=== PATIENT | female | born 1995 | race Hispanic/Latino ===

== ENCOUNTER 2024-05-03 08:37 | Emergency (ER) | payer BC, MEDICAID ==
[~2024-05-03] VITALS: Ht 147.3 cm; Wt 84.4 kg
[~2024-05-03 08:37] MED LIST: PREN-196 PO
[2024-05-03] MEDS ORDERED: ACET-2743 PO (09:00)
[2024-05-03] MEDS ORDERED: IBUP-2077 PO (09:00)
[2024-05-03] MEDS ORDERED: AMOX1TAB16 PO (09:00)
--- NOTE | 2024-05-03 09:02 | ERN ---
General Chief Complaint: Tooth Ache/Pain Stated Complaint: TOOTHACHE Time Seen by MD: 08:53 History of Present Illness Initial Comments 29-year-old female presents for dental infection to the left upper molars. Has been present for about three days. Tenderness. No abscess. No fevers or systemic illness. She took a few amoxicillin from [place]. She was planning on going to a dentist. Allergies: Coded Allergies: No Known Allergies (Unverified Allergy, Unknown, 03/19/14) Home Meds Reported Medications Vit No.124/Iron/FA ( Vitamin Tablet) 1 Each Tablet, 1 EACH PO DAILY, TAB 12/28/15 Past Medical History Past Medical History: No Pertinent History Past Surgical History: None Female( History) LMP: Apr 28, 2024 ROS Dictation CONSTITUTIONAL: No chills, no fever, no weakness, no diaphoresis, no malaise. HEAD/FACE: No signs of trauma. EENT: Dental pain RESPIRATORY: No cough, no orthopnea, no SOB, no stridor, no wheezing. CARDIOVASCULAR: No chest pain, no edema, no palpitations, no syncope. GASTROINTESTINAL/ABDOMINAL: No abdominal pain, no constipation, no diarrhea, no nausea, no vomiting. GENITOURINARY: No abnormal discharge, no dysuria, no frequent urination, no hematuria. No complaints of pain in the genitals. MUSCULOSKELETAL: No back pain, no gout, no joint pain, no joint swelling, no muscle pain, no muscle stiffness, no neck pain. INTEGUMENTARY: No change in color, no change in hair/nails, no dryness, no lesion, no lumps, no rash. NEUROLOGICAL/PSYCH: No anxiety, not depressed, no emotional problem, no headache, no numbness, no pre-existing deficit, no history of seizures, no t remors, no weakness. HEMATOLOGIC/LYMPHATIC: Not anemic, no history of blood clots, no apparent bleeding, no bruising, glands not swollen. All Systems Negative, Except as Noted. Physical Exam Physical Exam Dictation VITAL SIGNS: Reviewed. GENERAL APPEARANCE: Alert, oriented x3, no acute distress, obese. HEAD AND FACE: Non-traumatic. EYES: PERRL, pink conjunctivas, eyelid no trauma, anterior chamber clear. EARS: Pinnas intact and no signs of trauma or erythema. Ear canals clear and no discharge. TMs no erythema. NOSE: No discharge, no bleeding. OROPHARYNX: , irritation left upper teeth poor dentition NECK: Supple, non-tender, no thyromegaly, no masses, no JVD, no bruits. BREAST: Deferred. CHEST: No tenderness, no crepitus, no paradoxical movement, no retractions. LUNGS: Clear, well-ventilated, symmetric, no rales, no wheezing, no rhonchi, no stridor, good breath sounds bilaterally. HEART: Regular rate, regular rhythm, no murmur, no gallops. VASCULAR: No peripheral edema. ABDOMEN: Soft, positive bowel sounds, nondistended, no guarding, nontender, no rebound, no masses no hepatomegaly, no splenomegaly, no Meraz's sign, no hernias. RECTAL: Deferred. GENITAL: Deferred. NEUROLOGICAL: Normal speech, gross motor function intact, gross sensory function intact. MUSCULOSKELETAL: Neck nontender, full range of motion, back nontender, full range of motion. EXTREMITIES: Nontender, full range of motion. SKIN: Color pink, dry, no turgor, no rash, no lacerations, no abrasions, no contusions. LYMPHATICS: Deferred. ED Course Vital Signs Date Time Temp Pulse Resp B/P (MAP) Pulse Ox O2 Delivery O2 Flow Rate FiO2 05/03/24 08:38 97.5 86 16 114/84 97 Room Air* 0 21 05/03/24 08:38 97.5 86 16 114/84 97 Room Air 0 DX & DISP Disposition: Discharge Departure Impression: Primary Impression: Dental infection Condition: Stable Scripts Amoxicillin/Potassium Clav (Amox Tr-K Clv 875-125 mg Tab) 875 Mg-125 Mg Tablet 1 TAB PO BID for 10 Days, #20 TAB 0 Refills Prov: LAURIE PHILLIP DO 05/03/24 Acetaminophen (Tylenol Extra Strength) 500 Mg Tablet 1000 MG PO QID PRN for PAIN for 10 Days, #20 TAB Prov: LAURIE PHILLIP DO 05/03/24 Ibuprofen (Ibuprofen 800 mg Tab) 800 Mg Tab 800 MG PO Q6H PRN for PAIN, #30 TAB Prov: LAURIE PHILLIP DO 05/03/24 Additional Instructions: You have a dental infection. Please go to a dentist as soon as possible. I have prescribed Augmentin, which is an antibiotic. Please take as prescribed. Alternate 800 mg of ibuprofen and 1000 mg of Tylenol every 4 hours as needed for pain. Return to the emergency department as needed. Referrals: NONE (PCP) LAURIE PHILLIP DO May 03, 2024 09:02
[2024-05-03] MEDS: acetaMINOPHEN 500 MG TABLET PO ONE (09:30)
[2024-05-03] MEDS: ketOROlac 15MG/ML VIAL (15MG/ML) IM ONE (09:31)
[2024-05-03 10:00] VITALS: BP 112/87; PULSE 63; RESP 16; TEMP 98.2; O2SAT 97
== END 2024-05-03 10:07 | disposition home or self-care (01) ==
LOC: EDH 08:37
DX: K04.7 Periapical abscess without sinus (principal)
CPT/HCPCS: 99284; 96372; J1885; 99283